=== PATIENT | female | born 1955 | race Caucasian/White ===

== ENCOUNTER 2019-06-27 16:40 | Inpatient (IN) ==
[2019-06-27] MEDS ORDERED: ZOFRAN ODT PO ONE ×2 (17:27→20:55)
--- NOTE | 2019-06-27 17:29 | PROVIDER DOCUMENTATION ---
HPI-Abdominal Pain/GI Problem - General Chief Complaint: Abdominal Pain Stated Complaint: N/V/D Time Seen by Provider: 06/27/19 17:09 Source: patient Allergies/Adverse Reactions: Patient Allergies Allergy/AdvReac Type Severity Reaction Status Date / Time No Known Allergies Allergy Verified 06/27/19 18:51 Home Medications: Home Medication List Medication Instructions Recorded Confirmed Last Taken Type Ibuprofen [Advil] 200 mg PO Q6H PRN 06/27/19 06/27/19 2 Days Ago History ~06/25/19 - History of Present Illness-ABD Nature of Presenting Problems: 64 YO F presents with c/o n/v/ and abdominal pain x 4 days. 4-5 episodes of vomiting daily. Denies fever or diarrhea. States she has lost her voice because of vomiting so much. She also states she cannot walk because she has problems with her feet. Abdominal Pain Onset Location: reports: epigastric Pain Radiation: reports: no radiation Quality of Pain: reports: fullness Timing: reports: improving Modifying Factors: improves with: nothing Associated Symptoms: reports: denies symptoms Review of Systems - Adult - REVIEW OF SYSTEMS - ADULT Constitutional: denies: chills, fever Eyes: reports: no symptoms reported Ears, Nose, Mouth & Throat: reports: no symptoms reported Cardiovascular: reports: no symptoms reported Respiratory: reports: no symptoms reported Gastrointestinal: reports: see HPI, abdominal pain, nausea, vomiting Integumentary: reports: no symptoms reported Hematologic/Lymphatic: reports: no symptoms reported Allergic/Immunologic: reports: no symptoms reported Past History - Adult - PAST MEDICAL HISTORY-ADULT Review of Records: reports: Social history reviewed & non-contributory. Cardiovascular: reports: denies history Respiratory: reports: denies history Gastrointestinal: reports: denies history Genitourinary: reports: denies history Psychiatric: reports: denies history - PRIOR SURGERIES/PROCEDURES Surgical/Procedure History: reports: appendectomy - SOCIAL HISTORY Smoking: non-smoker Physical Exam-General - PHYSICAL EXAM-ADULT Initial Vital Signs Reviewed: Yes - CONSTITUTIONAL General Appearance: alert, thin - EYES Eyes: PERRL/EOMI, pink conjunctivae - HEAD, EARS, NOSE, MOUTH & THROAT HENMT: normocephalic/atraumatic, other (dry membranes) - NECK Neck: full range of motion, supple - RESPIRATORY Respiratory: lungs clear, normal breath sounds - CARDIOVASCULAR Cardiovascular: regular rate, rhythm, no edema, no murmur - GASTROINTESTINAL (ABDOMEN) Abdominal Exam: non tender, soft. negative: guarding, tenderness, hernia, mass - MUSCULOSKELETAL Extremity: no pedal edema - PSYCHIATRIC Psych/Mental Status: normal mood/affect, oriented x 3 Progress - PLAN OF CARE/RESULTS Progress/Plan/Lab Results: Vital Signs - 8 hr 06/27/19 17:23 Temperature 98.5 F Pulse Rate 124 H Respiratory Rate 19 Blood Pressure 120/79 O2 Sat by Pulse Oximetry 97 Orders Category Date Time Status Saline Loc NOW Care 06/27/19 17:26 Active FLAT/UPRIGHT ABD/1 VIEW CHEST [RAD] Stat Exams 06/27/19 17:26 Ordered CBC WITH ELECTRONIC DIFF [HEME] Stat Lab 06/27/19 17:26 Uncollected COMPREHENSIVE METABOLIC PANEL [CHEM] Stat Lab 06/27/19 17:26 Uncollected LIPASE [CHEM] Stat Lab 06/27/19 17:26 Uncollected TSH Stat Lab 06/27/19 17:26 Uncollected Ondansetron Odt [Zofran Odt] Med 06/27/19 17:27 Once 4 mg PO NOW ONE Result Diagrams: 06/27/19 18:07 06/27/19 18:07 - REASSESSMENT Reassessment #1 Time Reassessed: 19:15 Status: improving (labs reviewed, showing dehydration. normal CXR and upright abdomen imaging. will give NS and replace potassium.) - XRAY 1 XRAY Study: Chest, Abdomen Impression: Normal Comparison with other Films: no prior study - CONSULTS/PCP/HOSPITALIST Notification #1 *Consult/PCP/Hospitalist*: Dr. Dong Time Discussed: 23:36 Consult Disposition: Will see in ED Departure - Departure Date of Disposition Decision: 06/27/19 Time of Disposition Decision: 23:37 DIAGNOSIS: Dehydration syndrome, Hypokalemia, Hyponatremia, UTI (urinary tract infection), Nausea & vomiting Disposition: ADMITTED INPATIENT 09 Certified Medical Emergency: Emergent Condition: Stable Referrals and Follow-Ups: Adriana Tee MD [Primary Care Provider] - - Critical Care Note This patient required my direct & personal management of CC.: No Attestation - Physician/ TOSIN Attestation The physician spent face to face time with patient:: Yes Advanced Practice Provider documentation review:: Supervising physician onsite and consulted in the evaluation and care of this patient. The physician did have a face to face encounter with the patient.
[2019-06-27] MEDS ORDERED: NS 1,000 ML IV ONE ×2 (17:37→20:55)
[2019-06-27 18:22] LABS: BASO# 0.01 X1000 (0.0-0.2); BASO% 0.1 % (0.0-0.8); EOS# 0.11 X1000 (0.0-0.7); EOS% 0.9 % (0.0-10.0); HEMATOCRIT 47.7 % (37.0-47.0); HEMOGLOBIN 16.6 g/dL (12.0-16.0); IMM GRAN# 0.03 X1000 (0.0-0.04); IMM GRAN% 0.3 % (0.0-0.5); LYMPH# 1.56 X1000 (1.2-3.4); LYMPH% 13.5 % (20.5-51.1); MCH 35.6 PG (27-31); MCHC 34.8 g/dL (33-37); MCV 102.4 FL (81-99); MONO# 1.17 X1000 (0.11-0.59); MONO% 10.1 % (1.7-9.3); NEUT% 75.1 % (42.2-75.2); PLT 176 X1000 (130-400); RBC 4.66 XMIL (4.2-5.4); RDW 11.3 % (11.5-14.5); WBC 11.58 X1000 (4.8-10.8)
[2019-06-27 18:59] LABS: AGAP 19; ALB/GLOB RATIO 0.6; ALBUMIN 4.1 g/dL (3.5-5.0); ALKALINE PHOSPHATASE 99 U/L (32-104); BUN 19 mg/dL (8-22); CALCIUM 10.5 mg/dL (8.8-10.2); CHLORIDE 92 mmol/L (98-107); COSMO 271; CREATININE 0.5 mg/dL (0.5-0.9); ESTIMATED GFR > 60; GLUCOSE 114 mg/dL (70-104); GOT 86 U/L (10-30); GPT 57 U/L (10-36); LIPASE 77 U/L (13-60); POTASSIUM 3.2 mmol/L (3.5-5.1); SODIUM 134 mmol/L (136-145); TCO2 23 mmol/L (25-35); TOTAL BILIRUBIN 2.78 mg/dL (0.20-1.00); TOTAL PROTEIN 10.5 g/dL (6.3-8.3)
--- NOTE | 2019-06-27 18:59 | Diag Imaging Result Doc PS360 ---
EXAM: FLAT/UPRIGHT ABD/1 VIEW CHEST 06/27/2019 HISTORY: abdominal pain TECHNIQUE: AP upright chest and flat and upright abdomen COMMENT: There is some gas in the colon. The stomach and small bowel are not distended. There is no evidence of organomegaly or mass. There is a granuloma in the right lower lobe. No previous chest radiographs are available for comparison. There is no evidence of acute cardiac or pulmonary disease. IMPRESSION: Nonspecific abdomen. No acute disease in the chest. Electronically signed by Logan Avery 06/27/2019 6:56 PM
[2019-06-27] MEDS ORDERED: KLOR-CON PO ONE (19:18)
[2019-06-27 20:56] LABS: URINE SOURCE CLEAN CATCH
[2019-06-27 20:58] LABS: BILIRUBIN URINE SMALL (NEGATIVE); BLOOD URINE NEGATIVE (NEGATIVE); COLOR YELLOW; GLUCOSE URINE NEGATIVE (NEGATIVE); KETONE URINE TRACE mg/dL (NEGATIVE); LEUKOCYTES URINE LARGE (NEGATIVE); NITRITE URINE NEGATIVE (NEGATIVE); PH URINE 5.5; PROTEIN URINE 50 mg/dL (NEGATIVE); SP GRAVITY URINE 1.018; TURBIDITY URINE HAZY (CLEAR); UROBILINOGEN URINE >12 mg/dL (NORMAL)
[2019-06-27 21:02] LABS: UR EPITHELIAL CELLS <10 /HPF (<10); URINE BACTERIA NEGATIVE /HPF; URINE RBC <10 /HPF (<10); URINE WBC 20-40 /HPF (<10)
[2019-06-27] MEDS ORDERED: ROCEPHIN 1 GM in NS 50 ML IV ONE (21:10)
[2019-06-27] MEDS ORDERED: MORPHINE IV ONE (21:34)
--- NOTE | 2019-06-28 00:44 | HISTORY AND PHYSICAL ---
PRIMARY CARE PHYSICIAN: Dr. Tee. CHIEF COMPLAINT: Abdominal pain, nausea, vomiting. HISTORY OF PRESENTING ILLNESS: This is a 64-year-old female without any significant past medical history who had presented to the emergency department with several days history of having abdominal cramping, nausea and vomiting. The patient states that she was not feeling well and her symptoms were worsening. The patient was evaluated in the emergency department and due to her presenting symptoms it was thought that we will place her for observation for further evaluation and management. At the time of my examination the patient had denied any headache, fever, chills, chest pain, shortness of breath or any weight changes, but complained of abdominal cramping, nausea and vomiting. PAST MEDICAL HISTORY: None. PAST SURGICAL HISTORY: Appendectomy. ALLERGIES: No known drug allergies. CURRENT MEDICATIONS: Ibuprofen. SOCIAL HISTORY: No history of smoking. Admits to social alcohol use. Denies any illicit drug use. FAMILY HISTORY: No history of coronary disease. REVIEW OF SYSTEMS: Fourteen point review of systems is as in the HPI, other systems negative. PHYSICAL EXAMINATION: GENERAL: A cooperative friendly female. She is resting more comfortably now. VITAL SIGNS: Temperature 99.3 degrees, pulse 123, respiration 19, blood pressure 122/92. HEENT: Atraumatic, normocephalic. Extraocular movements intact. PERRLA. NECK: No masses. CHEST: Clear to auscultation. CARDIOVASCULAR: Regular rate and rhythm. ABDOMEN: Soft. Positive bowel sounds. EXTREMITIES: No edema. NEUROLOGIC: She is awake, alert, oriented x3. : No bladder distention. SKIN: Warm. LABORATORIES AND STUDIES: Sodium 134, potassium 3.2, chloride 92, CO2 is 23, BUN is 19, creatinine 0.5, glucose 114, lipase is 77, AST and ALT 86 and 54. WBC is 11.58, hemoglobin 16.6, hematocrit 47.7, platelets 176,000. Abdominal x-ray is nonspecific. ASSESSMENT: A 64-year-old female without any significant past medical history who had presented to the emergency department with several days history of having abdominal pain, nausea and vomiting. She was evaluated in the emergency department and due to her presenting symptoms we will place her for observation for further evaluation and management. Abdominal pain with nausea and vomiting nonspecific. PLAN: 1. We will admit patient to medical floor with telemetry. 2. Keep the patient NPO and continue with supportive treatment, IV fluids, antiemetics, pain control. 3. If the patient does not improve we will consult Gastroenterology. 4. Put the patient on DVT prophylaxis with SCDs. 5. We will continue to follow, reassess and make further recommendation based on the patient's clinical course. cc: Mihai Dong MD
[2019-06-28] MEDS: NS 1,000 ML IV SCH ×3 (02:38→18:32)
[2019-06-28] MEDS: MORPHINE IV PRN ×4 (03:03→21:11)
[2019-06-28] MEDS: ZOFRAN IV PRN ×2 (03:04→08:47)
[2019-06-28 03:54] LABS: AGAP 15; BUN 16 mg/dL (8-22); CALCIUM 8.7 mg/dL (8.8-10.2); CHLORIDE 99 mmol/L (98-107); COSMO 273; CREATININE 0.4 mg/dL (0.5-0.9); ESTIMATED GFR > 60; GLUCOSE 97 mg/dL (70-104); POTASSIUM 3.1 mmol/L (3.5-5.1); SODIUM 136 mmol/L (136-145); TCO2 22 mmol/L (25-35)
[2019-06-28 10:03] LABS: BASO# 0.01 X1000 (0.0-0.2); BASO% 0.1 % (0.0-0.8); EOS# 0.69 X1000 (0.0-0.7); EOS% 7.1 % (0.0-10.0); HEMATOCRIT 41.3 % (37.0-47.0); IMM GRAN# 0.02 X1000 (0.0-0.04); IMM GRAN% 0.2 % (0.0-0.5); LYMPH% 13.4 % (20.5-51.1); MCH 35.8 PG (27-31); MCHC 33.9 g/dL (33-37); MCV 105.6 FL (81-99); MONO# 1.18 X1000 (0.11-0.59); MONO% 12.2 % (1.7-9.3); MPV 11.8 FL (7.4-10.4); NEUT# 6.49 X1000 (1.4-6.5); PLT 100 X1000 (130-400); RBC 3.91 XMIL (4.2-5.4); RDW 11.4 % (11.5-14.5); WBC 9.69 X1000 (4.8-10.8)
[2019-06-28 10:14] LABS: ALB/GLOB RATIO 0.7; ALBUMIN 3.4 g/dL (3.5-5.0); DIRECT BILIRUBIN 0.7 mg/dL (0.00-0.20); TOTAL BILIRUBIN 1.83 mg/dL (0.20-1.00); TOTAL PROTEIN 8.1 g/dL (6.3-8.3)
--- NOTE | 2019-06-28 10:21 | Diag Imaging Result Doc PS360 ---
EXAM: US ABDOMEN-COMPLETE 06/28/2019 HISTORY: abdominal pain TECHNIQUE: Abdominal ultrasound COMMENT: The pancreas is normal in appearance. The visualized portions of the aorta and inferior vena cava are within normal limits. The liver is hyperechoic and inhomogeneous in echotexture. There is antegrade flow in the portal vein. The gallbladder demonstrates a fluid debris level. The wall of the gallbladder is not apparently thickened and there is no evidence of para cholecystic fluid. There is no sonographic Linn sign and no definite stones are present. There is no evidence of biliary dilatation the common bile duct measuring less than 4 mm. The kidneys are without evidence of hydronephrosis or mass. The spleen is not enlarged. There is a tiny amount of free fluid in the subhepatic space. IMPRESSION: Gallbladder sludge without evidence of acute cholecystitis. Cirrhosis and minimal ascites. Electronically signed by Logan Avery 06/28/2019 10:19 AM
[2019-06-28] MEDS ORDERED: SODIUM CHLORIDE 0.9% INJ PRN (10:57)
[2019-06-28] MEDS: POTASSIUM CHLORIDE 20 MEQ/SWI 20 MEQ/100 ML IVPB IV SCH ×2 (11:14→13:32)
[2019-06-28] MEDS: PHENERGAN IV PRN ×3 (11:16→21:11)
--- NOTE | 2019-06-28 11:29 | PROGRESS NOTE ---
DATE: 06/28/2019 SUBJECTIVE: The patient continues to complain of persistent nausea, vomiting and abdominal pain. She reports that she had this problem for about a week. OBJECTIVE: Vital Signs: Temperature 98 degrees, heart rate 97, respiratory rate 18, blood pressure 119/82, O2 saturation 100% on room air. General: This is a 64-year-old female, lying in bed, in no acute distress. Cardiovascular: S1, S2 heard. No murmurs, gallops, or rubs. Regular rate and rhythm. Respiratory: Clear bilaterally to auscultation. No work of breathing or using accessory muscles. Abdomen: Soft, a little bit distended and diffuse tenderness to palpation. No signs of peritoneal irritation. Extremities: No clubbing, cyanosis, or edema. Peripheral pulses present in both legs. Neurological: Patient is alert and oriented x3. Moves 4 extremities. LABORATORY DATA: Reviewed and potassium is 3.1. Mild elevated bilirubin at 1.83. ASSESSMENT AND PLAN: Abdominal pain. Workup is under progress. There is an order for abdominal ultrasound that shows basically biliary sludge but no cholecystitis. I am surprised that, considering this week of abdominal pain, this patient has not been requested any CT of the abdomen, just an abdominal x-ray. In any case, we have ordered one exam, will see what it shows. Patient reports feeling still nauseated so Zofran will be stopped and will put an order for Phenergan. We will increase the frequency of morphine to every 4 hours and we will go from there. cc: Lucho Demarco MD
--- NOTE | 2019-06-28 13:23 | Diag Imaging Result Doc PS360 ---
EXAM: CT ABDOMEN/PELVIS W/WO EZE 06/28/2019 HISTORY: intractable nausea, vomiting TECHNIQUE: This exam was performed using automated exposure control, adjustment of mA or kV according to patient size, and/or use of iterative reconstruction technique. COMMENT: There are coarse opacities present in the inferior lingula and inferior right middle lobe. There are no previous studies available for comparison. There are some groundglass opacities in both lower lobes. There is no evidence of nephrolithiasis or hydronephrosis. There may be some sediment or tiny stones layering dependently in the gallbladder. The gallbladder is distended. There is no evidence of para cholecystic fluid. The liver is nodular and inhomogeneous in density consistent with cirrhosis. There are scattered colonic diverticula. There is no evidence of small bowel dilatation. The stomach is not particularly distended. There may be mild mucosal thickening. The aorta is not distended and the mesenteric and renal arteries are patent. There is some atherosclerotic calcification in the distal abdominal aorta. The pancreas is unremarkable. There are some small periaortic nodes and nodes in the jacki hepatis. Some of the latter exceed 18 mm in greatest dimension. There is markedly inhomogeneous contrast enhancement of the liver. No discrete masses are present. There is stranding in the. Colic fat around the descending colon particularly around image 80. There is mucosal thickening from this level caudally to below the iliac crest. There is also extensive diverticulosis in the sigmoid colon. Pelvis: There has been previous appendectomy. There is no evidence of free fluid. The urinary bladder is not distended. There is heterotopic bone formation adjacent to the ischial tuberosities. There is a bone island in the medial right iliac bone. There are degenerative disc changes in the lumbar spine particularly at L2-3 and L3-4. IMPRESSION: 1. Cirrhosis. Borderline splenomegaly. Markedly nodular liver. Correlation with alpha-fetoprotein levels is recommended. 2. Periportal adenopathy. 3. Cholelithiasis and distention of the gallbladder. 4. Diverticulitis in the descending colon. Electronically signed by Logan Avery 06/28/2019 1:21 PM
[2019-06-28] MEDS ORDERED: PRILOSEC PO ONE (15:03)
[2019-06-28] MEDS: CARAFATE LIQUID PO SCH ×2 (15:16→21:10)
[2019-06-28] MEDS: FLAGYL PO SCH ×2 (16:29→21:10)
[2019-06-28] MEDS: ZOSYN 3.375 GM in NS 50 ML IV SCH ×2 (16:30→21:11)
--- NOTE | 2019-06-28 16:45 | GASTROENTEROLOGY CONSULTATION ---
DATE: 06/28/2019 CONSULTING PHYSICIAN: Dr. Mihai Dong. REASON FOR CONSULT: Abdominal pain, nausea, vomiting. This consult was for Dr. Clement. I am covering for Dr. Clement this weekend. HISTORY: This is a white female who reports no chronic medical problems. She has been in her usual health but for the past 3 to 4 months she has not been feeling well. She tells me that she has had this abdominal swelling she points in the upper part of the abdomen and her abdomen has been slightly sore. She has been weak and has not been able to take care of her regular chores and for the past few days she has been having some abdominal cramps associated with some nausea and she has been vomiting. She has had multiple emesis since yesterday and has had to the point she has become hoarse and throat hurts because of constant vomiting. She also complains of some problem with swallowing because of her vomiting. She denies any dysphagia. She has been NPO since arrival except the contrast that she had to drink for her CT scan of the abdomen. She denies any fever or chills. Has not had any melena but she does complain of some coffee-ground material in her emesis. Her last bowel movement was a couple days ago and she did not notice any blood or mucus in her stool either. She has been complaining of some headache but denies any double vision. Has had no earache, ear discharge, ringing in the ear. She complains of some retrosternal discomfort especially when she swallows. She has been having polyuria and has some dysuria too, denies any hematuria. PAST MEDICAL SIGNIFICANT SURGERY: She has had appendectomy done. MEDICATIONS: She takes pain medicine since her visit to the emergency room last Sunday otherwise no other medication. ALLERGIES: No drug allergies. SOCIAL HISTORY: She is , lives with her . She has an adult child, daughter lives in [place], [place]. She does not smoke but she drinks vodka with orange juice ever since she was in high school. Her also drinks but he drinks beer mostly, since Sunday her visit to the hospital emergency room she has not had any alcohol she claims. She does not use illicit drugs. FAMILY HISTORY: Noncontributory. REVIEW OF SYSTEMS: As per HPI as above. EXAMINATION: Very pleasant white female. She is very hoarse and she has a raspy voice. She is alert, oriented does not appear to be in any distress except when she is swallowing she complains of some discomfort.Vitals: Temperature 97.8 degrees, pulse is 96 per minute, breathing 16, blood pressure 136/90, she weighs about 104 pounds almost 105 pounds and she is 5 feet 4 inches tall. She is thin built, conscious, alert, appears to be in no distress. HEENT: Head is atraumatic, normocephalic. Conjunctivae mildly icteric. Nares patent. No discharge. Mouth buccal mucosa is moist. Throat is normal. Neck: Supple. No lymphadenopathy or thyromegaly. Chest: Has got harsh breath sounds bilaterally. No rhonchi or crepitus could be heard. Heart: Is audible. No murmur. Abdomen: Has got surgical scar cristal in the right lower quadrant area which is well-healed otherwise abdomen is slightly distended, soft but tender mostly in the upper part of the abdomen, liver is enlarged about 2 fingerbreadths below the subcostal margin and left lobe of the liver is palpable in the epigastric area. It is slightly tender but no rebound tenderness or guarding noted. No other mass or visceromegaly noted. Bowel sounds are audible. No pedal edema noted. No cyanosis, clubbing was noted. RESIDENTIAL SALES ASSOCIATE: Grossly intact. No sensory or motor deficit. LABORATORIES: Reviewed which showed WBC on admission 11.58 has come down to 9.69, hemoglobin when she came in was 16.6 now it is 14.0, hematocrit 41.3 today, MCV is 105.6, platelets were 176,000 on admission but is 100,000 today. Sodium 136, potassium 3.1, chloride 99, bicarb is 22, BUN is 16, creatinine 0.4, total bilirubin on admission was 2.78, AST 86, ALT 57 and alkaline phosphatase was 99. Albumin was 4.1 yesterday, today is 3.4, lipase slightly elevated 77. Urinalysis shows evidence of possible UTI cultures pending. CT scan of the abdomen done today shows markedly nodular slightly enlarged liver with borderline splenomegaly, she has periportal adenopathy and she has distended gallbladder with gallstones and there is question possible diverticulitis. HISTORY: This is a 64-year-old white female, does not have any major medical problem presented with abdominal pain, nausea and vomiting. Urinalysis shows possible UTI. Cultures pending but other that it shows evidence of nodule enlargement of the liver with splenomegaly and slightly elevated liver enzymes but low platelets and low albumin. She does have inflammation of the left colon also suggestive possible diverticulitis. She has been drinking vodka ever since she was in high school. There is question possible alcohol induced chronic liver disease and alcoholic hepatitis with cirrhosis now. She has had some reduction in synthetic function of the liver as well, has low albumin. PT/INR was not done we will check for that. She does have slight thrombocytopenia possibly from hypersplenism. She is on antibiotic for UTI while culture and sensitivity pending. I would add Flagyl to cover for possible diverticulitis. Continue her on PPI and add Carafate to it and follow. Depending on her progress further plans made. I will take care of her over the weekend and Dr. Clement will be available on Sunday. cc: Sher Morales MD MTDD
[2019-06-29] MEDS: MORPHINE IV PRN ×5 (01:45→20:55)
[2019-06-29] MEDS: CARAFATE LIQUID PO SCH ×4 (02:35→19:43)
[2019-06-29] MEDS: FLAGYL PO SCH (05:02)
[2019-06-29] MEDS: ZOSYN 3.375 GM in NS 50 ML IV SCH ×5 (05:02→21:07)
[2019-06-29 07:45] LABS: BASO# 0.01 X1000 (0.0-0.2); BASO% 0.2 % (0.0-0.8); EOS# 0.22 X1000 (0.0-0.7); EOS% 3.7 % (0.0-10.0); HEMATOCRIT 37.2 % (37.0-47.0); HEMOGLOBIN 12.5 g/dL (12.0-16.0); IMM GRAN# 0.02 X1000 (0.0-0.04); IMM GRAN% 0.3 % (0.0-0.5); LYMPH# 1.11 X1000 (1.2-3.4); LYMPH% 18.5 % (20.5-51.1); MCH 35.6 PG (27-31); MCHC 33.6 g/dL (33-37); MONO# 1.29 X1000 (0.11-0.59); MONO% 21.5 % (1.7-9.3); MPV 9.6 FL (7.4-10.4); NEUT# 3.36 X1000 (1.4-6.5); NEUT% 55.8 % (42.2-75.2); PLT 99 X1000 (130-400); RBC 3.51 XMIL (4.2-5.4); RDW 11.4 % (11.5-14.5); WBC 6.01 X1000 (4.8-10.8)
[2019-06-29 07:50] LABS: AGAP 13; ALB/GLOB RATIO 0.6; ALBUMIN 2.9 g/dL (3.5-5.0); ALKALINE PHOSPHATASE 74 U/L (32-104); BUN 8 mg/dL (8-22); CALCIUM 8.6 mg/dL (8.8-10.2); CHLORIDE 103 mmol/L (98-107); COSMO 272; CREATININE 0.4 mg/dL (0.5-0.9); ESTIMATED GFR > 60; GLUCOSE 104 mg/dL (70-104); GOT 41 U/L (10-30); GPT 33 U/L (10-36); POTASSIUM 3.1 mmol/L (3.5-5.1); SODIUM 137 mmol/L (136-145); TCO2 21 mmol/L (25-35); TOTAL BILIRUBIN 2.01 mg/dL (0.20-1.00); TOTAL PROTEIN 7.4 g/dL (6.3-8.3)
[2019-06-29 08:45] LABS: ANISOCYTOSIS 2+; EOS 5 % (1-10); LYMPHS 21 % (21-51); MONO 12 % (1-9); SEGS 62 % (42-75)
[2019-06-29 08:46] LABS: POIKILOCYTOSIS 1+; POLYCHROM 1+; TARGET CELLS 1+
[2019-06-29] MEDS ORDERED: KLOR-CON PO ONE (11:16)
[2019-06-29 11:41] LABS: INR 1.54; PROTIME 18.8 Seconds (11.0-16.0)
--- NOTE | 2019-06-29 12:13 | PROGRESS NOTE ---
DATE: 06/29/2019 SUBJECTIVE: The patient continues to complain of mild nausea and also abdominal pain as well that has been going on for a week. OBJECTIVE: Vital Signs: Temperature 99.0 degrees, heart rate 102, respiratory rate 16, blood pressure 134/82, O2 saturation 99% on room air. General Examination: This is a chronically ill- appearing, 64-year-old, female, lying in bed, in no acute distress. Cardiovascular Examination: S1 and S2 heard. No murmurs, gallops, or rubs. Regular rate and rhythm. Respiratory Examination: Clear bilaterally to auscultation. No work of breathing or using accessory muscles. Abdomen: Soft. A little bit distended. Tender to palpation in the epigastric area but there are no signs of peritoneal irritation. Bowel sounds present. It looks like the liver is slightly enlarged. Extremities: No clubbing, cyanosis, or edema. Peripheral pulses present in both legs. Neurological Examination: The patient is a little bit slow but PROGRAM SUPPORT ASSISTANT is grossly intact. No focality noted. Laboratory Data: White cell count 6.01, hemoglobin 12.5, hematocrit 37.2, platelets 99,000. Potassium 3.1. Bilirubin 2.01. ASSESSMENT AND PLAN: 1. Possible alcoholic liver cirrhosis. The patient is a drinker. She drinks vodka since she has been in high school. The CT of the abdomen showed nodular, slightly enlarged liver with borderline splenomegaly. Patient complains also of abdominal pain, mostly located in the epigastric area. Considering her long history of alcoholism, I think she may have some degree of gastritis and esophagitis so patient will be started on omeprazole 40 mg by mouth every 12 hours. She reports that she is able to take medications by mouth today. We will continue with sucralfate. The patient has been evaluated by Dr. Morales but she is going to be seen by Dr. Clement tomorrow. I think she may need to have endoscopy, not only to evaluate esophagitis and gastritis but also to rule out any possible esophageal varices. 2. Acute diverticulitis. That is what the CT of the abdomen found so, at this point, we will continue with Zosyn. 3. Cervical lymphadenopathy. Because of those lymph nodes and also because of the nodularity of the liver, I think to rule out any malignancy to the liver with lymph node metastasis, I prefer to go ahead and do a CT of the neck with contrast and we will see what it shows. 4. 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 I will continue to monitor CBC. There have not been any signs of bleeding though, except some coffee, maroon gastric secretions that could be most likely related to chronic gastritis secondary to chronic alcohol consumption. In any case, we will continue to monitor this patient closely. 5. Disposition. Awaiting evaluation from gastroenterology tomorrow to see if this patient will be scoped or not. cc: Lucho Demarco MD
--- NOTE | 2019-06-29 14:07 | GASTROENTEROLOGY PROGRESS NOTE ---
DATE: 06/29/2019 SUBJECTIVE: Patient states she is feeling a little better. Abdominal pain has improved some. OBJECTIVE: Vital Signs: Temperature 99.0 degrees, pulse 102, respirations 16, blood pressure 134/88. General: Patient is awake and alert. No acute distress. Abdomen: Some tenderness noted. Some distention noted. LABORATORY: Hematology: WBC 6.01, hemoglobin 12.5, hematocrit 37.2, platelets 99,000. Chemistry: Sodium 137, potassium 3.1, chloride 103, CO2 21, BUN 8, creatinine 0.4, glucose 104, calcium 8.6. Total bilirubin 2.01, AST 41, ALT 33, alkaline phosphatase 74. Ammonia 44. Waiting on hepatitis profile and alpha fetoprotein. CT scan had shown cirrhosis with borderline splenomegaly and marked nodular liver, chololithiasis, and diverticulitis in the descending colon. ASSESSMENT AND PLAN: 1. Abdominal pain, proceed with EGD for further evaluation. 2. Cirrhosis of the liver. Waiting on hepatitis profile and alpha fetoprotein. Will need liver biopsy. 3. CT showing diverticulitis, continued antibiotic. Continue PPI and Carafate. EGD Sunday. Discussed procedure along with benefits and risk. Patient wishes to proceed. I have discussed this case with Dr. Morales. Dictated by ABBIE Mcdermott for Sher Morales MD cc: ABBIE Montes MD [facility]
--- NOTE | 2019-06-29 14:19 | Diag Imaging Result Doc PS360 ---
EXAM: CT NECK W/CONTRAST 06/29/2019 HISTORY: bilateral lymphadenopathy TECHNIQUE: This exam was performed using automated exposure control, adjustment of mA or kV according to patient size, and/or use of iterative reconstruction technique. COMMENT: There are no previous studies available for comparison. There is no evidence of acute pulmonary disease in the portions of the chest included on the study. The nasopharynx orbits, pharynx, and hypopharynx are unremarkable. The epiglottis is not enlarged. There is no evidence of significant adenopathy. There is a cyst or small nodule measuring less than 4 mm in the right thyroid lobe. The thyroid is not enlarged. There are some atherosclerotic calcifications in the left subclavian artery. The larynx is unremarkable. Salivary glands are symmetrical in appearance. IMPRESSION: No acute abnormality. No significant adenopathy. Electronically signed by Logan Avery 06/29/2019 2:17 PM
[2019-06-29] MEDS: PRILOSEC PO SCH (21:05)
[2019-06-29] MEDS ORDERED: ZOFRAN IV PRN (21:37)
[2019-06-30] MEDS: CARAFATE LIQUID PO SCH ×3 (03:18→14:43)
[2019-06-30] MEDS: ZOSYN 3.375 GM in NS 50 ML IV SCH ×4 (04:45→23:58)
[2019-06-30] MEDS: PRILOSEC PO SCH (06:45)
[2019-06-30] MEDS ORDERED: DIPRIVAN 1% ONE ×2 (07:05→09:22)
[2019-06-30 07:21] LABS: BASO# 0.02 X1000 (0.0-0.2); BASO% 0.4 % (0.0-0.8); EOS# 0.16 X1000 (0.0-0.7); EOS% 3.2 % (0.0-10.0); HEMATOCRIT 40.2 % (37.0-47.0); HEMOGLOBIN 14.1 g/dL (12.0-16.0); IMM GRAN# 0.03 X1000 (0.0-0.04); IMM GRAN% 0.6 % (0.0-0.5); LYMPH# 0.76 X1000 (1.2-3.4); LYMPH% 15.1 % (20.5-51.1); MCH 36.2 PG (27-31); MCHC 35.1 g/dL (33-37); MCV 103.1 FL (81-99); MONO# 1.72 X1000 (0.11-0.59); MONO% 34.3 % (1.7-9.3); MPV 9.9 FL (7.4-10.4); NEUT# 2.33 X1000 (1.4-6.5); NEUT% 46.4 % (42.2-75.2); PLT 106 X1000 (130-400); RDW 11.2 % (11.5-14.5); WBC 5.02 X1000 (4.8-10.8)
[2019-06-30 07:36] LABS: AGAP 13; ALB/GLOB RATIO 0.6; ALBUMIN 2.9 g/dL (3.5-5.0); ALKALINE PHOSPHATASE 70 U/L (32-104); BUN 5 mg/dL (8-22); CHLORIDE 96 mmol/L (98-107); COSMO 261; CREATININE 0.4 mg/dL (0.5-0.9); ESTIMATED GFR > 60; GLUCOSE 111 mg/dL (70-104); GOT 32 U/L (10-30); GPT 25 U/L (10-36); POTASSIUM 2.9 mmol/L (3.5-5.1); SODIUM 131 mmol/L (136-145); TCO2 22 mmol/L (25-35); TOTAL BILIRUBIN 1.62 mg/dL (0.20-1.00); TOTAL PROTEIN 7.9 g/dL (6.3-8.3)
[2019-06-30 07:38] LABS: INR 1.5; PROTIME 18.4 Seconds (11.0-16.0)
[2019-06-30 08:10] LABS: EOS 2 % (1-10); LYMPHS 26 % (21-51); MONO 16 % (1-9); SEGS 56 % (42-75)
--- NOTE | 2019-06-30 08:10 | EKG Report ---
Test Performed on : 06/30/2019 08:04:12 AM Test Reason : for surgey Blood Pressure : / mmHG Vent. Rate : 099 BPM Atrial Rate : 099 BPM P-R Int : 120 ms QRS Dur : 094 ms QT Int : 396 ms P-R-T Axes : -24 -17 028 degrees QTc Int : 508 ms Normal sinus rhythm. Prolonged QT Abnormal ECG No previous ECGs available Confirmed by Keyanna DELATORRE, [place] ([id number]) on 06/30/2019 1:16:33 PM
[2019-06-30] MEDS ORDERED: VITAMIN K 10 MG in NS 50 ML IV ONE (09:23)
--- NOTE | 2019-06-30 09:39 | ENDOSCOPY OPERATIVE NOTE ---
[facility] ENDOSCOPY OPERATIVE NOTE , PATIENT: Kimberlee Elena ADMISSION DATE: 06/30/2019 MR#: [id number] : 1955 EGD PROCEDURE REPORT PROCEDURE DATE: 06/30/2019 SURGEON: Sher Morales MD STATUS: inpatient APPLICATION DEVELOPMENT TEAM LEAD: Hattie Eason PREOPERATIVE DIAGNOSIS: The patient is a 64 yr old female here for an EGD due to epigastric abdomina l pain, nausea, and vomiting. PROCEDURE PERFORMED: EGD w/ biopsy MEDICATIONS: Per Anesthesia TOPICAL ANESTHETIC: none CONSENT: The patient understands the risks and benefits of the procedure and understands that these r isks include, but are not limited to: sedation, allergic reaction, infection, perforation and/or bleeding. Alternative means of evaluation and treatment include, among others: physical exam, x-rays, and/or surgical intervention. The patient elects to proceed with this endoscopic procedure. HISORY AND PHYSICAL: 06/30/2019 function. Hand hygiene and appropriate measures for infection prevention was taken. After the risks, benefits and alternatives of the procedure were thoroughly explained, Informed consent was verified, confirmed and timeout was successfully executed by the treatment team. The patient was anesthetized with topical anesthesia and the Pentax [id number] endoscope was introduced through the mouth and advanced to the second portion of the duodenu m. Retroflexion was performed in the stomach and revealed no abnormalities. The gastroscope was then slowly withdraw n and removed. ESOPHAGUS: Oropharyngeal kiet. Reflux esophagitis was found in the mid esophagus and distal esop hagus. Esophagitis was LA Class D: Mucosal breaks involving more than 75% of esophageal circumference. There was no ev idence of Hiatal Hernia, Smart's Esophagus or varices. The esophagus was otherwise normal. STOMACH: Moderate gastritis (inflammation) was found in the gastric antrum. Multiple biopsies were p erformed using cold forceps. Sample sent for histology. Moderate gastropathy was found in the gastric fundus and gastr ic body. The stomach otherwise appeared normal. DUODENUM: The duodenal mucosa showed no abnormalities. SPECIMENS REMOVED: No ADVERSE EVENTS: There were no complications. POSTOPERATIVE DIAGNOSIS: 1. Oropharyngeal kiet 2. Reflux esophagitis in the mid esophagus and distal esophagus 3. The esophagus was otherwise normal 4. Gastritis (inflammation) was found in the gastric antrum; multiple biopsies were performed 5. Gastropathy was found in the gastric fundus and gastric body 6. The stomach otherwise appeared normal 7. The duodenal mucosa showed no abnormalities RECOMMENDATIONS: 1. Follow-up biopsy results in 2 weeks 2. Avoid non-steroid anti-inflammatory drugs 3. Resume current medications 4. Diflucan 100 mg PO every day for ten days. 5. Transfer to floor REPEAT EXAM: Sher Morales MD eSigned: Sher Morales MD 06/30/2019 9:38 AM cc: PATIENT NAME: Kimberlee Elena MR#: [id number]
[2019-06-30 09:47] LABS: HEPATITIS PROFILE ACUTE SEE COMMENTS
[2019-06-30] MEDS: DIFLUCAN PO SCH (11:15)
[2019-06-30] MEDS: MORPHINE IV PRN (11:23)
[2019-06-30] MEDS ORDERED: NS 500 ML IV SCH (11:30)
[2019-06-30] MEDS: POTASSIUM CHLORIDE 20 MEQ/SWI 20 MEQ/100 ML IVPB IV SCH ×2 (11:57→17:46)
[2019-06-30] MEDS ORDERED: TYLENOL PO PRN (12:45)
[2019-06-30] MEDS ORDERED: ZOFRAN IV PRN (12:45)
--- NOTE | 2019-06-30 13:24 | PROGRESS NOTE ---
DATE: 06/30/2019 SUBJECTIVE: She just does not feel good. She is very hoarse, not eating very much, but some of that is self, she refuses to eat. OBJECTIVE: Vital Signs: Blood pressure is 117/70, heart rate 99, respiratory rate 18, temperature 98 degrees, saturating 97% on room air. Cardiovascular: Regular rate and rhythm. Pulmonary: Bilateral breath sounds. Clear to auscultation. GI: Soft, nontender, nondistended. Bowel sounds are positive. LABORATORY DATA: White count 5, hemoglobin and hematocrit 14 and 40, platelets of 106,000, which is stable. INR is 1.5, which is stable. Potassium 2.9, sodium 131. AFP was negative. PROBLEM LIST: 1. Possible cirrhosis based on CT imaging. She has mild coagulopathy. She has significant alcohol history, including usage up until a couple of days ago. She was a pint drinker. She has undergone endoscopy today, which did show gastritis and irritation. I do not know if she clearly has portal gastropathy, but in any case, she also has been exposed to hepatitis C. It may be active. I am waiting on the other data, but I am suspicious that she probably has it. 2. Diverticulitis. We will continue antibiotics. She is on Zosyn, and it is day 2 because it was started late in the evening. 3. Hypokalemia. We will supplement and follow. 4. Morphine she says is not effective in her pain control. In any case, we will continue to monitor closely. Hopefully, discharge soon once she is stabilized. cc: Arpit Poe MD
[2019-06-30] MEDS: DILAUDID IV PRN (14:42)
[2019-07-01] MEDS: CARAFATE LIQUID PO SCH ×5 (00:02→20:30)
[2019-07-01] MEDS: PRILOSEC PO SCH ×3 (00:03→20:30)
[2019-07-01] MEDS: DILAUDID IV PRN ×5 (00:21→21:16)
[2019-07-01] MEDS: ZOSYN 3.375 GM in NS 50 ML IV SCH ×4 (04:38→21:23)
[2019-07-01 07:38] LABS: INR 1.57; PROTIME 19.1 Seconds (11.0-16.0)
[2019-07-01 07:42] LABS: BASO# 0.03 X1000 (0.0-0.2); BASO% 0.4 % (0.0-0.8); EOS# 0.21 X1000 (0.0-0.7); EOS% 3.1 % (0.0-10.0); HEMOGLOBIN 13.6 g/dL (12.0-16.0); IMM GRAN# 0.04 X1000 (0.0-0.04); IMM GRAN% 0.6 % (0.0-0.5); LYMPH# 1.45 X1000 (1.2-3.4); LYMPH% 21.1 % (20.5-51.1); MCH 36.2 PG (27-31); MCHC 34.9 g/dL (33-37); MCV 103.7 FL (81-99); MONO# 2.72 X1000 (0.11-0.59); MONO% 39.5 % (1.7-9.3); NEUT# 2.43 X1000 (1.4-6.5); NEUT% 35.3 % (42.2-75.2); PLT 117 X1000 (130-400); RBC 3.76 XMIL (4.2-5.4); RDW 11.6 % (11.5-14.5); WBC 6.88 X1000 (4.8-10.8)
[2019-07-01 08:07] LABS: AGAP 12; ALB/GLOB RATIO 0.6; ALBUMIN 2.7 g/dL (3.5-5.0); ALKALINE PHOSPHATASE 70 U/L (32-104); BUN 5 mg/dL (8-22); CHLORIDE 95 mmol/L (98-107); COSMO 259; CREATININE 0.4 mg/dL (0.5-0.9); ESTIMATED GFR > 60; GLUCOSE 113 mg/dL (70-104); GOT 26 U/L (10-30); GPT 21 U/L (10-36); POTASSIUM 3.1 mmol/L (3.5-5.1); SODIUM 130 mmol/L (136-145); TCO2 23 mmol/L (25-35); TOTAL BILIRUBIN 1.12 mg/dL (0.20-1.00); TOTAL PROTEIN 7.4 g/dL (6.3-8.3)
[2019-07-01 08:35] LABS: BANDS 5 % (0-1); EOS 1 % (1-10); LYMPHS 21 % (21-51); MONO 36 % (1-9); SEGS 37 % (42-75)
[2019-07-01] MEDS: PHENERGAN IV PRN ×2 (10:17→15:23)
[2019-07-01] MEDS: DIFLUCAN PO SCH (10:17)
[2019-07-01] MEDS: KLOR-CON PO ONE ×2 (12:09→13:58)
[2019-07-01] MEDS: POTASSIUM CHLORIDE 20 MEQ/SWI 20 MEQ/100 ML IVPB IV SCH ×2 (12:09→14:07)
--- NOTE | 2019-07-01 12:26 | GASTROENTEROLOGY PROGRESS NOTE ---
DATE: 07/01/2019 SUBJECTIVE: Patient is still having some hoarseness. An EGD was done on 06/30/2019. Findings showed oropharyngeal kiet, reflux esophagitis, gastritis, and gastropathy. She was started on Diflucan. Recommended to continue her PPI. She is also on Carafate. The patient has had lab work showing a reactive hepatitis C. Genotype and viral load have been ordered. CT scan of abdomen and pelvis had showed cirrhosis with borderline splenomegaly and markedly nodular liver. Her alpha fetoprotein was normal. Abdominal ultrasound showed gallbladder sludge without evidence of acute cholecystitis and cirrhosis with minimal ascites. OBJECTIVE: Vital Signs: Temperature 99.1 degrees, pulse 87, respirations 18, and blood pressure 121/79. General: Patient is awake and alert. She was sitting up on the side of the bed. Abdomen: Distended. Otherwise soft, some tenderness is noted. LABORATORY: Hematology: WBC 6.88, hemoglobin 13.6, hematocrit 39.0 and platelets 117,000. PT/INR on 07/01/2019 19.1 and 1.57. Chemistry: Sodium 130, potassium 3.1, chloride 95, CO2 of 23, BUN 5, creatinine 0.4, glucose 113, total bilirubin 1.12. AST 26, ALT 21, and alkaline phosphatase 70. ASSESSMENT AND PLAN: 1. EGD showing oropharyngeal kiet on Diflucan now, esophagitis, gastritis and gastropathy. 2. Possible cirrhosis. 3. Hepatomegaly/splenomegaly. 4. Hepatitis C reactive. Waiting on genotype and viral load. 5. Dr. Morales recommends further evaluation of the liver with a liver biopsy. I have ordered an ultrasound-guided liver biopsy by the radiologist. Further plans will be made according to findings. I have discussed the procedure with the patient, and she wishes to proceed. I have discussed this case with Dr. Morales. Dictated by ABBIE Mcdermott for Sher Morales MD cc: ABBIE Montes MD
[2019-07-01] MEDS ORDERED: VITAMIN K 10 MG in NS 50 ML IV ONE (16:55)
[2019-07-01] MEDS ORDERED: NS 1,000 ML IV ONE (17:16)
--- NOTE | 2019-07-01 17:44 | PROGRESS NOTE ---
DATE: 07/01/2019 SUBJECTIVE: The patient has no major complaints. She is still not eating very well. There is not clearly any p.o. issues. White count 6. Hemoglobin 13 and hematocrit 39. Platelets of 117,000. INR is 1.5. Sodium 131, potassium 3.1. PROBLEM LIST: 1. Cirrhosis. She has alcoholic history. Gastroenterology is following. Appreciate their input. Dr. Morales has put in for a liver biopsy tomorrow. She is hepatitis C positive. I think she probably has active hepatitis C. I think they did a quantification, which is an automatic test when the hepatitis C antibody is positive, they automatically do an HCV RNA by PCR, but in any case will follow. 2. Diverticulitis. She is on antibiotics day #3. 3. Hypokalemia. We will continue to supplement. I am going to put her on some normal saline at low dose. She does not clearly have portal hypotension, but we will continue to follow. cc: Arpit Poe MD
[2019-07-01 18:52] LABS: AGAP 17; ALB/GLOB RATIO 0.5; ALBUMIN 2.8 g/dL (3.5-5.0); ALKALINE PHOSPHATASE 64 U/L (32-104); BUN 5 mg/dL (8-22); CALCIUM 9.6 mg/dL (8.8-10.2); CHLORIDE 94 mmol/L (98-107); COSMO 261; CREATININE 0.4 mg/dL (0.5-0.9); ESTIMATED GFR > 60; GLUCOSE 112 mg/dL (70-104); GOT 29 U/L (10-30); GPT 22 U/L (10-36); POTASSIUM 3.7 mmol/L (3.5-5.1); SODIUM 131 mmol/L (136-145); TCO2 20 mmol/L (25-35); TOTAL BILIRUBIN 1.19 mg/dL (0.20-1.00); TOTAL PROTEIN 8.2 g/dL (6.3-8.3)
[2019-07-02] MEDS: DILAUDID IV PRN ×6 (01:18→20:28)
[2019-07-02] MEDS: ZOSYN 3.375 GM in NS 50 ML IV SCH ×4 (05:32→20:15)
[2019-07-02 05:35] LABS: INR 1.42; PROTIME 17.7 Seconds (11.0-16.0)
[2019-07-02 05:54] LABS: AGAP 12; ALB/GLOB RATIO 0.5; ALBUMIN 2.4 g/dL (3.5-5.0); ALKALINE PHOSPHATASE 55 U/L (32-104); BUN 5 mg/dL (8-22); CALCIUM 8.5 mg/dL (8.8-10.2); CHLORIDE 102 mmol/L (98-107); COSMO 269; CREATININE 0.3 mg/dL (0.5-0.9); ESTIMATED GFR > 60; GLUCOSE 103 mg/dL (70-104); GOT 23 U/L (10-30); GPT 16 U/L (10-36); POTASSIUM 3.7 mmol/L (3.5-5.1); SODIUM 136 mmol/L (136-145); TCO2 22 mmol/L (25-35); TOTAL BILIRUBIN 0.93 mg/dL (0.20-1.00)
[2019-07-02] MEDS: CARAFATE LIQUID PO SCH ×4 (05:56→20:14)
[2019-07-02 06:29] LABS: BASO# 0.04 X1000 (0.0-0.2); BASO% 0.6 % (0.0-0.8); EOS# 0.21 X1000 (0.0-0.7); EOS% 2.9 % (0.0-10.0); HEMATOCRIT 35.3 % (37.0-47.0); HEMOGLOBIN 12.2 g/dL (12.0-16.0); IMM GRAN# 0.04 X1000 (0.0-0.04); IMM GRAN% 0.6 % (0.0-0.5); LYMPH# 1.48 X1000 (1.2-3.4); LYMPH% 20.6 % (20.5-51.1); MCH 36.1 PG (27-31); MCHC 34.6 g/dL (33-37); MCV 104.4 FL (81-99); MONO# 2.38 X1000 (0.11-0.59); MONO% 33.2 % (1.7-9.3); MPV 9.5 FL (7.4-10.4); NEUT# 3.02 X1000 (1.4-6.5); NEUT% 42.1 % (42.2-75.2); PLT 124 X1000 (130-400); RBC 3.38 XMIL (4.2-5.4); RDW 11.5 % (11.5-14.5); WBC 7.17 X1000 (4.8-10.8)
[2019-07-02] MEDS: PRILOSEC PO SCH ×2 (06:53→20:14)
--- NOTE | 2019-07-02 08:21 | Diag Imaging Result Doc PS360 ---
EXAM: US LIVER BIOPSY W S/I 07/02/2019 HISTORY: hepatomegaly/? cirrhosis/Hep C TECHNIQUE: Ultrasound-guided biopsy of the liver. COMMENT: The risks and benefits of the procedure including the possibility of bleeding, infection, or reaction to lidocaine were discussed with the patient and she agreed to the procedure. Following sterile preparation of the skin anteriorly and administration 1% lidocaine to the skin and deeper soft tissues, the anterior left hepatic lobe was biopsied 3 times with a Temno coaxial 18-gauge core biopsy needle. There are no immediate complications. IMPRESSION: Successful ultrasound-guided liver biopsy. Electronically signed by Logan Avery 07/02/2019 8:19 AM
[2019-07-02] MEDS: DIFLUCAN PO SCH (09:20)
[2019-07-02 10:30] LABS: HCV BY PCR SEE COMMENTS
--- NOTE | 2019-07-02 13:51 | GASTROENTEROLOGY PROGRESS NOTE ---
DATE: 07/02/2019 SUBJECTIVE: Patient had an ultrasound-guided liver biopsy this morning. She is asking if she can have something to eat. Her diet was resumed and it should be time for lunch trays to be delivered soon. She reports some mild abdominal pain post liver biopsy. She is tearful and when asked why, she stated she was hungry. She was held NPO this morning for her liver biopsy. OBJECTIVE: Vital Signs: Temperature 98.6 degrees, pulse 96, respirations 16, blood pressure 109/71. Generally: Patient is awake and alert. No acute distress. She has a Band-Aid in place to the right quadrant from recent liver biopsy. Abdomen: Otherwise soft with positive bowel sounds. Some distention noted. LABORATORY: Hematology WBC 7.17, hemoglobin 12.2, hematocrit 35.3, MCV 104.4, platelets 124,000, coagulation ProTime 17.7, INR 1.42, chemistry sodium 136, potassium 3.7, chloride 102, CO2 of 22, BUN 5, creatinine 0.3, glucose 103, total bilirubin 0.93, AST 23, ALT 16, alkaline phosphatase 55. ASSESSMENT AND PLAN: 1. Elevated liver function tests have improved. 2. Hepatitis C reactive waiting on hepatitis C genotype. Recommend patient follow up with us as an outpatient for treatment. 3. Most likely cirrhosis of the liver, hx alcohol abuse but also positive for Hepatitis C. Liver biopsy done today for further evaluation. Will wait on results. 4. Esophagogastroduodenoscopy showing oropharyngeal Blanche, esophagitis, gastritis, and gastropathy. Continue current medications. PLAN: We will continue to follow. Further plans will be made as needed. Recommend patient follow up with us as an outpatient for hepatitis C treatment. I have discussed this case with Dr. Morales. Dictated by ABBIE Mcdermott for Sher Morales MD cc: ABBIE Montes MD [facility]
[2019-07-02] MEDS: PHENERGAN IV PRN (17:33)
--- NOTE | 2019-07-02 18:24 | PROGRESS NOTE ---
DATE: 07/02/2019 SUBJECTIVE: She is still kind of refusing to eat, which is unfortunate. She just says she feels bad, but she is not throwing up, but she is really not eating, or at least resisting to eat. OBJECTIVE: Vital Signs: Blood pressure is 135/90, heart rate 97, respiratory rate 17, temperature 98.3, 100% on room air. Cardiovascular: Regular rate and rhythm. Pulmonary: Bilateral breath sounds, clear to auscultation. GI: Soft, nontender, nondistended. Bowel sounds are positive. LABORATORY DATA: As described. PROBLEM LIST: 1. Cirrhosis, possible. She had a biopsy today. We will follow. She has risk factors of chronic alcohol use and she is also hepatitis C positive, and she has chronic active hepatitis based on her HCV. Her hepatitis C genotype is pending. Gastroenterology is following. She will need to follow up with them for treatment. 2. Diverticulitis. She is on Zosyn. Anticipate we can discharge her on Augmentin tomorrow. 3. Hypokalemia that is improved. 4. Chronic alcohol abuse. She seems to be doing okay without anything. DISPOSITION: Anticipate discharge tomorrow. cc: Arpit Poe MD
[2019-07-03] MEDS: DILAUDID IV PRN ×2 (03:35→09:02)
[2019-07-03] MEDS: PHENERGAN IV PRN (03:45)
[2019-07-03] MEDS: ZOSYN 3.375 GM in NS 50 ML IV SCH ×2 (04:30→08:38)
[2019-07-03] MEDS: CARAFATE LIQUID PO SCH ×2 (05:00→08:40)
[2019-07-03 07:54] VITALS: BP 105/69
[2019-07-03 08:00] LABS: AGAP 13; ALB/GLOB RATIO 0.6; ALBUMIN 2.6 g/dL (3.5-5.0); ALKALINE PHOSPHATASE 70 U/L (32-104); BUN 4 mg/dL (8-22); CALCIUM 8.6 mg/dL (8.8-10.2); CHLORIDE 99 mmol/L (98-107); COSMO 264; CREATININE 0.3 mg/dL (0.5-0.9); ESTIMATED GFR > 60; GLUCOSE 111 mg/dL (70-104); GOT 27 U/L (10-30); GPT 16 U/L (10-36); POTASSIUM 3.2 mmol/L (3.5-5.1); SODIUM 133 mmol/L (136-145); TCO2 21 mmol/L (25-35); TOTAL BILIRUBIN 1.13 mg/dL (0.20-1.00); TOTAL PROTEIN 6.8 g/dL (6.3-8.3)
[2019-07-03] MEDS: PRILOSEC PO SCH (08:25)
[2019-07-03] MEDS: DIFLUCAN PO SCH (12:05)
[2019-07-03 21:35] LABS: HEPATITIS C GENOTYPE SEE COMMENTS
--- NOTE | 2019-07-04 04:56 | DISCHARGE SUMMARY ---
ADMISSION DATE: 06/27/2019 DISCHARGE DATE: 07/03/2019 PRIMARY CARE PHYSICIAN: Dr. Adriana Tee. CONSULTATION: With GI, Dr. Morales. ADMISSION DIAGNOSES: 1. Abdominal pain. 2. Nausea and vomiting. DISCHARGE DIAGNOSES: 1. Possible cirrhosis, status post biopsy. 2. Diverticulitis. 3. Chronic alcohol abuse. 4. Hepatitis C positive with chronic active hepatitis based on her hepatitis C virus. SUMMARY OF FINDINGS: This is a 64-year-old female who presented to the ER with several-day history of having abdominal cramping, nausea and vomiting, not feeling well and felt her symptoms were worsening. Her lipase was 77, AST and ALT were 86 and 54. We did a abdomen x-ray that was a nonspecific abdomen and no acute disease in the chest. We did an abdomen ultrasound that showed gallbladder sludge without evidence of acute cholecystitis, cirrhosis and minimal ascites. We did an abdomen and pelvic CT that showed cirrhosis with borderline splenomegaly, marked nodular liver, correlation with an alpha fetoprotein level was recommended, periportal adenopathy, cholelithiasis and distention of the gallbladder, diverticulitis in the descending colon. We consulted GI. We did a neck CT on 06/29/2019 that showed no acute abnormality. This was done due to her having some bilateral lymphadenopathy. No significant findings. She had an EGD with biopsy per GI on 06/30/2019 that showed oropharyngeal candidiasis, reflux esophagitis, gastritis, gastropathy was found in the gastric fundus. Was recommended to have a biopsy in 2 weeks, avoid any NSAIDs, do Diflucan 100 mg p.o. daily for 10 days. We did a liver biopsy ultrasound on 07/02/2019 that showed a successful ultrasound-guided liver biopsy and she was started on IV antibiotics for her diverticulitis and is now felt that she can safely be discharged home today. DISCHARGE MEDICATIONS: 1. Augmentin 875/125 p.o. q.12 hours. 2. MBX solution of 15 mL p.o. q.6 hours p.r.n. 3. Diflucan 100 mg p.o. daily for 7 days. 4. Omeprazole 40 mg p.o. b.i.d. 5. Oxy IR 5 mg p.o. q.4 hours p.r.n. 6. Phenergan 25 mg p.o. q.6 hours p.r.n. FOLLOWUP: She needs to follow up with GI as he has instructed her to do and with her primary care physician. She is to call Dr. Tee's office to set up a new patient appointment. All discharge instructions have been reviewed with the patient and she verbalized understanding. TIME SPENT: This is a 35 minute discharge. Dictated by ABBIE Troncoso for Arpit Poe MD cc: ABBIE Troncoso MD Marlin D. Gill, MD Khurshid Yousuf, MD
== END 2019-07-03 12:54 | disposition home or self-care (01) | DRG 433 ==
LOC: SUPCPDRO → 3N 16:40 → ED 16:40 → SUATTDRO 16:41 → OBSVTOIN 16:41
PROVIDERS: ATTEND Internal Medicine